=== PATIENT | male | born 1990 | race Caucasian/White ===

== ENCOUNTER 2021-01-20 11:41 | Emergency (ER) | payer SELFPAY ==
[2021-01-20] MEDS ORDERED: Ondansetron 4 MG/2 ML SDV IVPUSH ONE (12:23)
[2021-01-20] MEDS ORDERED: Sodium Chloride 0.9% 10 ML Syringe FLUSH PRN (12:23)
[2021-01-20] MEDS ORDERED: LORazepam 2 MG/ML SDV IVPUSH ONE (12:23)
[2021-01-20] MEDS ORDERED: Sodium Chloride 0.9% 1,000 ML IV ONE (12:25)
--- NOTE | 2021-01-20 12:35 | EDM.PDOC ---
ED HPI GENERAL MEDICAL PROBLEM - General Chief Complaint: General Stated Complaint: NOT EATING OR SLEEPING Time Seen by Provider: 01/20/21 12:03 Source of Information: Reports: Patient History Limitations: Reports: No Limitations - History of Present Illness INITIAL COMMENTS - FREE TEXT/NARRATIVE: 30-year-old male presents the emergency department with complaints of anxiety,, nausea, sweating, and inability to eat or sleep. Patient states that he stopped using heroin cold turkey approximately 30 days ago. States he has been using it for approximately the past 20 years. He has been clean at times for up to 6 months however he states he always rebounds and goes back to using it. States he has also been using fentanyl for about a year. States he is also drinking a few sips of alcohol throughout the day daily since he has stopped using heroin. He also does smoke about a pack of cigarettes daily. - Related Data Allergies Allergy/AdvReac Type Severity Reaction Status Date / Time No Known Allergies Allergy Verified 01/20/21 12:04 Home Meds: Home Meds Escitalopram Oxalate [Lexapro] 10 mg PO DAILY #30 tablet 01/20/21 [Rx] Ondansetron [Zofran ODT] 4 mg PO Q6H PRN #12 tab.dis 01/20/21 [Rx] Past Medical History Psychiatric History: Reports: Addiction, Anxiety Other Psychiatric History: Quit IV Heroin in November 2020, after using for 20 yrs - Past Surgical History Musculoskeletal Surgical History: Reports: Other (See Below) Other Musculoskeletal Surgeries/Procedures:: Right hand surgery after an injury that caused a fracture Social & Family History - Tobacco Use Tobacco Use Status *Q: Current Every Day Tobacco User Years of Tobacco use: 24 Packs/Tins Daily: 0.5 - Caffeine Use Caffeine Use: Reports: None - Alcohol Use Days Per Week of Alcohol Use: 7 Number of Drinks Per Day: 2 Total Drinks Per Week: 14 - Recreational Drug Use Recreational Drug Use: Yes Drug Use in Last 12 Months: Yes Recreational Drug Type: Reports: Heroin Recreational Drug Last Use: 30 days ago ED ROS GENERAL - Review of Systems Review Of Systems: Comprehensive ROS is negative, except as noted in HPI. ED EXAM, GENERAL - Physical Exam Exam: See Below Exam Limited By: No Limitations General Appearance: Alert, WD/WN, Anxious Ears: Normal External Exam, Hearing Grossly Normal Nose: Normal Inspection Throat/Mouth: Normal Inspection, Normal Lips, Normal Voice, No Airway Compromise Head: Atraumatic Neck: Normal Inspection, Supple Respiratory/Chest: No Respiratory Distress, Lungs Clear, Normal Breath Sounds, No Accessory Muscle Use, Chest Non-Tender Cardiovascular: Normal Peripheral Pulses, Regular Rate, Rhythm, No Edema, No Murmur Peripheral Pulses: 2+: Radial (L), Radial (R) GI/Abdominal: Normal Bowel Sounds, Soft, Non-Tender, No Distention (Male) Exam: Deferred Rectal (Males) Exam: Deferred Back Exam: Normal Inspection Extremities: Normal Inspection Neurological: Alert, Oriented, Normal Cognition Psychiatric: Anxious Skin Exam: Warm, Dry, Intact, Normal Color, No Rash Lymphatic: No Adenopathy #1 Interpretation EKG Date: 01/20/21 Time: 12:44 Rhythm: NSR Rate (Beats/Min): 80 [place]: Normal P-Wave: Present QRS: Normal ST-T: Normal QT: Normal Comparison: NA - No Prior EKG EKG Interpretation Comments: Per Dr. Shaikh interpretation: Sinus rhythm at 80 bpm; borderline low voltage, extremity leads Course - Vital Signs Text/Narrative:: As stated above, patient presents with symptoms of detoxing from heroin. Physical exam is essentially unremarkable. Will obtain lab studies to include a CBC, CMP, magnesium, salicylate, acetaminophen, TSH, urine drug screen and an alcohol level. Also obtain a baseline EKG. Patient will be given a liter of n ormal saline as he states he has been unable to keep food or fluids down as well as Zofran and Ativan. Last Recorded V/S: Last Vital Signs Temp 98.7 F 01/20/21 11:59 Pulse 103 H 01/20/21 11:59 Resp 24 H 01/20/21 11:59 BP 136/96 H 01/20/21 11:59 Pulse Ox - Orders/Labs/Meds Orders: Active Orders 24 hr Category Date Time Status Sodium Chloride 0.9% [Saline Flush] Med 01/20/21 12:23 Active 10 ml FLUSH ASDIRECTED PRN Saline Lock Insert [OM.PC] Stat Oth 01/20/21 12:23 Ordered Medication Orders Sodium Chloride (Sodium Chloride 0.9% 10 Ml Syringe) 10 ml FLUSH ASDIRECTED PRN PRN Reason: Keep Vein Open Last Admin: 01/20/21 13:50 Dose: 10 ml Documented by: KALEY Labs: Laboratory Tests 01/20/21 01/20/21 01/20/21 Range/Units 12:38 12:38 12:38 WBC 8.22 (4.23-9.07) K/mm3 RBC 5.31 (4.63-6.08) M/mm3 Hgb 15.5 (13.7-17.5) gm/dl Hct 44.3 (40.1-51.0) % MCV 83.4 (79.0-92.2) fl MCH 29.2 (25.7-32.2) pg MCHC 35.0 (32.2-35.5) g/dl RDW Std Deviation 41.1 (35.1-43.9) fL Plt Count 458 H (163-337) K/mm3 MPV 8.8 L (9.4-12.3) fl Neut % (Auto) 55.5 (34.0-67.9) % Lymph % (Auto) 30.9 (21.8-53.1) % [place] % (Auto) 12.5 H (5.3-12.2) % Eos % (Auto) 0.6 L (0.8-7.0) Baso % (Auto) 0.4 (0.1-1.2) % Neut # (Auto) 4.56 (1.78-5.38) K/mm3 Lymph # (Auto) 2.54 (1.32-3.57) K/mm3 [place] # (Auto) 1.03 H (0.30-0.82) K/mm3 Eos # (Auto) 0.05 (0.04-0.54) K/mm3 Baso # (Auto) 0.03 (0.01-0.08) K/mm3 Sodium 137 (136-145) mEq/L Potassium 2.5 L (3.5-5.1) mEq/L Chloride 97 L (98-107) mEq/L Carbon Dioxide 31 (21-32) mEq/L Anion Gap 11.5 (5-15) BUN 15 (7-18) mg/dL Creatinine 1.4 H (0.7-1.3) mg/dL Est Cr Clr Drug Dosing 70.82 mL/min Estimated GFR (MDRD) 59 (>60) mL/min BUN/Creatinine Ratio 10.7 L (14-18) Glucose 108 H (70-99) mg/dL Calcium 9.8 (8.5-10.1) mg/dL Magnesium 2.4 (1.8-2.4) mg/dL Total Bilirubin 0.8 (0.2-1.0) mg/dL AST 9 L (15-37) U/L ALT 20 (16-63) U/L Alkaline Phosphatase 49 (46-116) U/L Total Protein 7.5 (6.4-8.2) g/dl Albumin 4.3 (3.4-5.0) g/dl Globulin 3.2 gm/dL Albumin/Globulin Ratio 1.3 (1-2) TSH 3rd Generation 0.483 (0.358-3.74) uIU/mL Salicylates (2.8-20) mg/dL Urine Opiates Screen (OLJJRF=486) Ur Buprenorphine Scrn (CUTOFF=10) Ur Oxycodone Screen (YYX9NS=186) Urine Methadone Screen (MUS5GK=818) Ur Propoxyphene Screen (FVXBGK=812) Acetaminophen 0 L (10-30) ug/mL Ur Barbiturates Screen (YDLTLQ=016) Ur Tricyclics Screen (OFZTYT=083) Ur Phencyclidine Scrn (CUTOFF=25) Ur Amphetamine Screen (FDXZOA=932) U Methamphetamines Scrn (JIMEIF=141) U Benzodiazepines Scrn (EYMHIQ=093) U Cocaine Metab Screen (UXGDGU=955) U Marijuana (THC) Screen (CUTOFF=50) Ethyl Alcohol 0.00 (0.00) gm% 01/20/21 01/20/21 Range/Units 12:38 16:46 WBC (4.23-9.07) K/mm3 RBC (4.63-6.08) M/mm3 Hgb (13.7-17.5) gm/dl Hct (40.1-51.0) % MCV (79.0-92.2) fl MCH (25.7-32.2) pg MCHC (32.2-35.5) g/dl RDW Std Deviation (35.1-43.9) fL Plt Count (163-337) K/mm3 MPV (9.4-12.3) fl Neut % (Auto) (34.0-67.9) % Lymph % (Auto) (21.8-53.1) % [place] % (Auto) (5.3-12.2) % Eos % (Auto) (0.8-7.0) Baso % (Auto) (0.1-1.2) % Neut # (Auto) (1.78-5.38) K/mm3 Lymph # (Auto) (1.32-3.57) K/mm3 [place] # (Auto) (0.30-0.82) K/mm3 Eos # (Auto) (0.04-0.54) K/mm3 Baso # (Auto) (0.01-0.08) K/mm3 Sodium (136-145) mEq/L Potassium (3.5-5.1) mEq/L Chloride (98-107) mEq/L Carbon Dioxide (21-32) mEq/L Anion Gap (5-15) BUN (7-18) mg/dL Creatinine (0.7-1.3) mg/dL Est Cr Clr Drug Dosing mL/min Estimated GFR (MDRD) (>60) mL/min BUN/Creatinine Ratio (14-18) Glucose (70-99) mg/dL Calcium (8.5-10.1) mg/dL Magnesium (1.8-2.4) mg/dL Total Bilirubin (0.2-1.0) mg/dL AST (15-37) U/L ALT (16-63) U/L Alkaline Phosphatase (46-116) U/L Total Protein (6.4-8.2) g/dl Albumin (3.4-5.0) g/dl Globulin gm/dL Albumin/Globulin Ratio (1-2) TSH 3rd Generation (0.358-3.74) uIU/mL Salicylates 0.2 L (2.8-20) mg/dL Urine Opiates Screen Negative (JZDBDQ=645) Ur Buprenorphine Scrn Negative (CUTOFF=10) Ur Oxycodone Screen Negative (RJC5XM=020) Urine Methadone Screen Negative (YFR4WX=923) Ur Propoxyphene Screen Negative (NFKXAA=045) Acetaminophen (10-30) ug/mL Ur Barbiturates Screen Negative (QEZIOO=114) Ur Tricyclics Screen Negative (OOOLJD=890) Ur Phencyclidine Scrn Negative (CUTOFF=25) Ur Amphetamine Screen Presumptive positive H (SSWZSG=402) U Methamphetamines Scrn Presumptive positive H (DOXNXM=654) U Benzodiazepines Scrn Presumptive positive H (UBNYLS=896) U Cocaine Metab Screen Negative (CDLDWY=789) U Marijuana (THC) Screen Negative (CUTOFF=50) Ethyl Alcohol (0.00) gm% Meds: Medications Generic Name Dose Route Start Last Admin Trade Name Freq PRN Reason Stop Dose Admin Sodium Chloride 10 ml 01/20/21 12:23 01/20/21 13:50 Sodium Chloride 0.9% 10 Ml Syringe FLUSH 10 ml ASDIRECTED PRN Administration Keep Vein Open Discontinued Medications Generic Name Dose Route Start Last Admin Trade Name Freq PRN Reason Stop Dose Admin Sodium Chloride 1,000 mls @ 999 mls/hr 01/20/21 12:25 01/20/21 12:46 Normal Saline IV 01/20/21 13:25 999 mls/hr ONETIME ONE Administration Potassium Chloride 10 meq/ 100 mls @ 100 mls/hr 01/20/21 13:30 01/20/21 16:51 Premix IV 01/20/21 17:29 100 mls/hr Q1H JUAN Administration Lorazepam 1 mg 01/20/21 12:23 01/20/21 12:48 Lorazepam 2 Mg/Ml Sdv IVPUSH 01/20/21 12:24 1 mg ONETIME ONE Administration Ondansetron HCl 4 mg 01/20/21 12:23 01/20/21 12:47 Ondansetron 4 Mg/2 Ml Sdv IVPUSH 01/20/21 12:24 4 mg ONETIME ONE Administration Potassium Chloride 40 meq 01/20/21 13:25 01/20/21 13:50 Potassium Chloride 20 Meq Tab.Er PO 01/20/21 13:26 40 meq ONETIME ONE Administration - Re-Assessments/Exams Free Text/Narrative Re-Assessment/Exam: 01/20/21 1325 Hematology is essentially unremarkable Chemistry reveals a sodium of 137, potassium 2.5, chloride 97, carbon dioxide 31, anion gap 11.5, BUN 15, creatinine 1.4, glucose 108, magnesium 2.4, AST 9, ALT 20, alk phos 49, TSH 0.483 Salicylate level 0.2, acetaminophen 0, ethyl alcohol 0.00 Patient will receive potassium chloride 10 mEq every 1 hour x 4 doses as well as potassium chloride 40 mEq p.o. x1 dose. 11/27/21 16:48 Patient states he would potentially be receptive to going to the [facility] for treatment. [facility] will be called to come and visit with him. 01/20/21 18:03 Urine drug screen is presumptive positive for amphetamines, methamphetamines and benzodiazepines. 01/20/21 18:49 [facility] staff here to visit the patient. Potassium infusion is complete. Patient will be discharged home. Requesting a sleeping pill however I told him that he should try melatonin as an alternative. He states he does have a prescription for hydroxyzine at home so he will try that. We will also send prescription to [facility] in [place] for Zofran ODT as well as Lexapro 10 mg daily. Departure - Departure Time of Disposition: 18:50 Disposition: Home, Self-Care 01 Condition: Good Clinical Impression: Hypokalemia, Heroin use Nausea & vomiting Qualifiers: Vomiting type: unspecified Vomiting Intractability: intractable Qualified Code(s): R11.2 - Nausea with vomiting, unspecified - Discharge Information Prescriptions: Escitalopram Oxalate [Lexapro] 10 mg PO DAILY #30 tablet Ondansetron [Zofran ODT] 4 mg PO Q6H PRN #12 tab.dis PRN Reason: Nausea/Vomiting Referrals: PCP,None [Primary Care Provider] - Forms: ED Department Discharge Additional Instructions: You were seen in the emergency department today and evaluated. Lab studies were completed and you were found to be quite low on potassium. Subsequently received IV fluids and potassium supplementation via IV and oral. Recommend you follow-up with [facility] first thing Friday to establish care. I have sent a prescription to [facility] in [place] for a nausea medication called Zofran ODT. You may take [address] it under your tongue and allow to dissolve. Wait approximately 30 minutes prior to eating or drinking. May take 1 tab every 6 hours as needed for nausea and vomiting. I have also sent a prescription for an antidepression/anxiety medication called Lexapro to the pharmacy. You will need to take 1 tab daily. Allow approximately 2 weeks for the medication to start to take effect. Initial side effects of this medication are headache and nausea however these resolve after about 1 week time. Recommend that you establish care either with [facility] or with your primary care provider to prescribe further doses of your Lexapro. Sepsis Event Note (ED) - Evaluation Sepsis Screening Result: No Definite Risk - Focused Exam Vital Signs: Vital Signs Temp Pulse Resp BP 01/20/21 11:59 98.7 F 103 H 24 H 136/96 H - My Orders Last 24 Hours: My Active Orders 01/20/21 12:23 Sodium Chloride 0.9% [Saline Flush] 10 ml FLUSH ASDIRECTED PRN Saline Lock Insert [OM.PC] Stat - Assessment/Plan Last 24 Hours: My Active Orders 01/20/21 12:23 Sodium Chloride 0.9% [Saline Flush] 10 ml FLUSH ASDIRECTED PRN Saline Lock Insert [OM.PC] Stat
[2021-01-20] MEDS ORDERED: Potassium Chloride 20 MEQ Tab.ER PO ONE (13:25)
[2021-01-20] MEDS: Potassium Chloride 10 MEQ in Premix Bag 1 BAG IV SCH ×4 (13:50→16:51)
== END 2021-01-20 19:02 | disposition home or self-care (01) ==
LOC: JD.ED 11:41
DX: R11.2 Nausea with vomiting, unspecified (principal); F11.90 Opioid use, unspecified, uncomplicated; E87.6 Hypokalemia; Z72.0 Tobacco use
CPT/HCPCS: 36415; 80053; 80143; 80179; 80306; 80307; 83735; 84443; 85025; 93005; 96365; 96366; 96375; 99284-25; A9270-GY; J2060; J2405; J3480; J7030

== ENCOUNTER 2021-01-22 20:49 | Emergency (ER) | payer SELFPAY ==
[2021-01-22] MEDS ORDERED: Metoclopramide 10 MG/2 ML SDV IVPUSH ONE (22:02)
[2021-01-22] MEDS ORDERED: Sodium Chloride 0.9% 10 ML Syringe FLUSH PRN (22:02)
[2021-01-22] MEDS ORDERED: Ketorolac 30 MG/ML SDV IVPUSH ONE (22:02)
[2021-01-22] MEDS ORDERED: Sodium Chloride 0.9% 1,000 ML IV ONE (22:14)
--- NOTE | 2021-01-22 22:19 | EDM.PDOC ---
ED HPI GENERAL MEDICAL PROBLEM - General Chief Complaint: General Stated Complaint: NOT FEELING WELL Time Seen by Provider: 01/22/21 22:01 Source of Information: Reports: Patient, Old Records (visit from a few days ago), RN Notes Reviewed History Limitations: Reports: No Limitations - History of Present Illness INITIAL COMMENTS - FREE TEXT/NARRATIVE: Patient is a 30-year-old male who presents to the ER for ongoing nausea/vomiting. He had a ER visit in this ER a few days ago, was given some IV potassium fluids, and sent home with some Zofran and Lexapro and states that he did feel better for a few days. He did follow-up with [facility] and notes he does have continuing follow-up with Dr. Cevallos for ongoing psychiatric management. Patient has a history of heroin use, methamphetamine use, and alcohol use. States that he cut heroin out of his life cold turkey about 30 days ago. States he has been using some alcohol during this time to help "numb the symptoms". Both he and his significant other in the room states that he is not been able to keep anything down for food or fluids today at all. She did try to give him some Zofran earlier today and this didn't seem to help at all. No fevers but he does feel chilled, he is having nausea and vomiting, no diarrhea no cough or shortness of breath. Generalized Pain Score (Numeric/FACES): 4 - Related Data Allergies Allergy/AdvReac Type Severity Reaction Status Date / Time amoxicillin Allergy Rash Verified 01/22/21 21:25 Home Meds: Home Meds Escitalopram Oxalate [Lexapro] 10 mg PO DAILY #30 tablet 01/20/21 [Rx] Ondansetron [Zofran ODT] 4 mg PO Q6H PRN #12 tab.dis 01/20/21 [Rx] Metoclopramide HCl [Reglan] 10 mg PO QID PRN #20 tablet 01/22/21 [Rx] Past Medical History Psychiatric History: Reports: Addiction, Anxiety Other Psychiatric History: Quit IV Heroin in November 2020, after using for 20 yrs - Past Surgical History Musculoskeletal Surgical History: Reports: Other (See Below) Other Musculoskeletal Surgeries/Procedures:: Right hand surgery after an injury that caused a fracture Social & Family History - Caffeine Use Caffeine Use: Reports: None - Recreational Drug Use Recreational Drug Use: Yes Drug Use in Last 12 Months: Yes Recreational Drug Type: Reports: Heroin (IV, quit in november 2020, has 20 year use history), Methamphetamine ED ROS GENERAL - Review of Systems Review Of Systems: Comprehensive ROS is negative, except as noted in HPI. ED EXAM, GENERAL - Physical Exam Exam: See Below Exam Limited By: No Limitations General Appearance: Alert, WD/WN, No Apparent Distress Throat/Mouth: Normal Inspection, Normal Lips, Normal Teeth, Normal Gums, Normal Oropharynx, Normal Voice, No Airway Compromise Respiratory/Chest: No Respiratory Distress, Lungs Clear, Normal Breath Sounds, No Accessory Muscle Use, Chest Non-Tender Cardiovascular: Normal Peripheral Pulses, Regular Rate, Rhythm, No Edema Peripheral Pulses: 2+: Radial (L), Radial (R) GI/Abdominal: Normal Bowel Sounds, Soft, Non-Tender, No Distention, No Mass Extremities: Normal Inspection, Normal Capillary Refill Neurological: Alert, Oriented, Normal Cognition, No Motor/Sensory Deficits Psychiatric: Normal Affect, Normal Mood Skin Exam: Warm, Dry, Intact, Normal Color, No Rash Course - Vital Signs Last Recorded V/S: Last Vital Signs Temp 97.4 F 01/22/21 21:19 Pulse 100 01/22/21 21:19 Resp 18 01/22/21 21:19 BP 128/103 H 01/22/21 21:19 Pulse Ox 100 01/22/21 21:19 - Orders/Labs/Meds Orders: Active Orders 24 hr Category Date Time Status Peripheral IV Care [RC] . DIRECTED Care 01/22/21 22:02 Active Sodium Chloride 0.9% [Saline Flush] Med 01/22/21 22:02 Active 10 ml FLUSH ASDIRECTED PRN Peripheral IV Insertion Adult [OM.PC] Routine Oth 01/22/21 22:02 Ordered Medication Orders Sodium Chloride (Sodium Chloride 0.9% 10 Ml Syringe) 10 ml FLUSH ASDIRECTED PRN PRN Reason: Keep Vein Open Last Admin: 01/22/21 22:20 Dose: 10 ml Documented by: KENDRA Labs: Laboratory Tests 01/22/21 01/22/21 Range/Units 22:10 22:10 WBC 17.54 H (4.23-9.07) K/mm3 RBC 5.43 (4.63-6.08) M/mm3 Hgb 16.2 (13.7-17.5) gm/dl Hct 46.0 (40.1-51.0) % MCV 84.7 (79.0-92.2) fl MCH 29.8 (25.7-32.2) pg MCHC 35.2 (32.2-35.5) g/dl RDW Std Deviation 42.3 (35.1-43.9) fL Plt Count 433 H (163-337) K/mm3 MPV 8.5 L (9.4-12.3) fl Neut % (Auto) 74.4 H (34.0-67.9) % Lymph % (Auto) 17.4 L (21.8-53.1) % [place] % (Auto) 7.2 (5.3-12.2) % Eos % (Auto) 0.6 L (0.8-7.0) Baso % (Auto) 0.2 (0.1-1.2) % Neut # (Auto) 13.05 H (1.78-5.38) K/mm3 Lymph # (Auto) 3.05 (1.32-3.57) K/mm3 [place] # (Auto) 1.26 H (0.30-0.82) K/mm3 Eos # (Auto) 0.11 (0.04-0.54) K/mm3 Baso # (Auto) 0.03 (0.01-0.08) K/mm3 Sodium 140 (136-145) mEq/L Potassium 3.7 (3.5-5.1) mEq/L Chloride 101 (98-107) mEq/L Carbon Dioxide 29 (21-32) mEq/L Anion Gap 13.7 (5-15) BUN 15 (7-18) mg/dL Creatinine 1.4 H (0.7-1.3) mg/dL Est Cr Clr Drug Dosing TNP Estimated GFR (MDRD) 59 (>60) mL/min BUN/Creatinine Ratio 10.7 L (14-18) Glucose 102 H (70-99) mg/dL Calcium 9.9 (8.5-10.1) mg/dL Magnesium 3.1 H (1.8-2.4) mg/dL Total Bilirubin 0.3 (0.2-1.0) mg/dL AST 15 (15-37) U/L ALT 20 (16-63) U/L Alkaline Phosphatase 48 (46-116) U/L Total Protein 7.5 (6.4-8.2) g/dl Albumin 4.3 (3.4-5.0) g/dl Globulin 3.2 gm/dL Albumin/Globulin Ratio 1.3 (1-2) Meds: Medications Generic Name Dose Route Start Last Admin Trade Name Dash PRN Reason Stop Dose Admin Sodium Chloride 10 ml 01/22/21 22:02 01/22/21 22:20 Sodium Chloride 0.9% 10 Ml Syringe FLUSH 10 ml ASDIRECTED PRN Administration Keep Vein Open Discontinued Medications Generic Name Dose Route Start Last Admin Trade Name Dash PRN Reason Stop Dose Admin Sodium Chloride 1,000 mls @ 999 mls/hr 01/22/21 22:14 01/22/21 22:17 Normal Saline IV 01/22/21 23:14 999 mls/hr ONETIME ONE Administration Ketorolac Tromethamine 30 mg 01/22/21 22:02 01/22/21 22:18 Ketorolac 30 Mg/Ml Sdv IVPUSH 01/22/21 22:03 30 mg ONETIME ONE Administration Metoclopramide HCl 10 mg 01/22/21 22:02 01/22/21 22:17 Metoclopramide 10 Mg/2 Ml Sdv IVPUSH 01/22/21 22:03 10 mg ONETIME ONE Administration - Re-Assessments/Exams Free Text/Narrative Re-Assessment/Exam: 01/22/21 22:18 Patient presents to the ER for his ongoing nausea/vomiting. We'll go ahead and get IV established, give him some fluids, some Toradol and Reglan for ongoing management we'll check some labs as well. 01/22/21 22:58 Patient is resting at this time, states that he is feeling better. After he finishes up his fluids, we will get him going home with general recommendations. I will give him a prescription for Reglan for ongoing management as this seemed to help his nausea quite a bit today. Patient's white count was mildly elevated, is likely due to acute stress/nausea and vomiting. All other labs are unremarkable, potassium is within normal limits, magnesium was slightly high at 3.1 but he has no symptoms of hypomagnesemia. Calcium is also within normal limits. Departure - Departure Time of Disposition: 22:59 Disposition: Home, Self-Care 01 Condition: Good Clinical Impression: Nausea and vomiting Qualifiers: Vomiting type: unspecified Vomiting Intractability: non-intractable Qualified Code(s): R11.2 - Nausea with vomiting, unspecified - Discharge Information *PRESCRIPTION DRUG MONITORING PROGRAM REVIEWED*: No *COPY OF PRESCRIPTION DRUG MONITORING REPORT IN PATIENT DUGLAS: No Prescriptions: Metoclopramide HCl [Reglan] 10 mg PO QID PRN #20 tablet PRN Reason: Nausea Instructions: Nausea and Vomiting, Adult, [id number] Referrals: PCP,None [Primary Care Provider] - Forms: ED Department Discharge Additional Instructions: You have been evaluated in the ED for nausea/vomiting. Laboratory evaluation demonstrated no acute abnormalities in your potassium levels at today's visit. White count was a little bit elevated, but this sometimes can be elevated when we are having nausea/vomiting as it is an acute stress phase reactant. You have received IV fluid and nausea medications in the ED to help with the dehydration from the vomiting. Over the next 24-48 hours please try to limit diet to clear liquids and advance as tolerated to a bland diet to alleviate symptoms of nausea/vomiting. Please use the Reglan 4 times a day as needed for ongoing nausea. This medication was electronically sent to the [place] pharmacy located in the [employer] [facility]. Sometimes this can interact with your medication Lexapro, if you should notice any involuntary muscle movements, facial tics or otherwise, please do not use the Reglan anymore. Please follow-up with [facility] human services as previously set up for ongoing management of your psychiatric/addiction needs. Please return to the ED if your symptoms should change or worsen. Sepsis Event Note (ED) - Evaluation Sepsis Screening Result: No Definite Risk - Focused Exam Vital Signs: Vital Signs Temp Pulse Resp BP Pulse Ox 01/22/21 21:19 97.4 F 100 18 128/103 H 100 - My Orders Last 24 Hours: My Active Orders 01/22/21 22:02 Peripheral IV Care [RC] . DIRECTED Sodium Chloride 0.9% [Saline Flush] 10 ml FLUSH ASDIRECTED PRN Peripheral IV Insertion Adult [OM.PC] Routine - Assessment/Plan Last 24 Hours: My Active Orders 01/22/21 22:02 Peripheral IV Care [RC] . DIRECTED Sodium Chloride 0.9% [Saline Flush] 10 ml FLUSH ASDIRECTED PRN Peripheral IV Insertion Adult [OM.PC] Routine
== END 2021-01-22 23:23 | disposition home or self-care (01) ==
LOC: JD.ED 20:49
DX: R11.2 Nausea with vomiting, unspecified (principal); Z88.0 Allergy status to penicillin
CPT/HCPCS: 36415; 80053; 83735; 85025; 96374; 96375; 99284; J1885; J2765; J7030

== ENCOUNTER 2022-05-12 14:51 | Emergency (ER) | payer SELFPAY ==
[2022-05-12] MEDS ORDERED: Sodium Chloride 0.9% 1,000 ML IV STA (15:21)
[2022-05-12] MEDS ORDERED: Sodium Chloride 0.9% 10 ML Syringe FLUSH PRN (15:21)
[2022-05-12] MEDS ORDERED: Ondansetron 4 MG/2 ML SDV IVPUSH ONE (15:21)
[2022-05-12] MEDS ORDERED: cloNIDine 0.1 MG Tab PO ONE (15:23)
[2022-05-12] MEDS ORDERED: Metoclopramide 10 MG/2 ML SDV IVPUSH ONE (16:52)
[2022-05-12] MEDS ORDERED: HYDROmorphone 1 MG/ML Syringe IVPUSH ONE (16:52)
[2022-05-12] MEDS ORDERED: Lactated Ringers 1,000 ML IV ONE (17:35)
[2022-05-12] MEDS ORDERED: HYDROmorphone 0.5 MG/0.5 ML Syringe IVPUSH ONE (18:19)
== END 2022-05-12 18:43 | disposition home or self-care (01) ==
LOC: JD.ED 14:51
DX: F11.23 Opioid dependence with withdrawal (principal); Z72.0 Tobacco use; Z88.0 Allergy status to penicillin
CPT/HCPCS: 36415; 80053; 80143; 80179; 80307; 83735; 85025; 96361; 96374; 96375; 99284; J1170; J2405; J2765; J3490; J7030; 99283

== ENCOUNTER 2023-10-06 20:22 | Inpatient (IN) | payer MEDICAID ==
[2023-10-06 21:10] LABS: BASOPHILS PERCENT AUTO 0.1 % (0.0-1.0); EOSINOPHILS PERCENT AUTO 0.2 % (0.0-6.0); HEMATOCRIT 46.8 % (42.0-52.0); HEMOGLOBIN 16.7 gm/dl (14.0-18.0); IMMATURE GRAN ABSOLUTE AUTO 0.03 K/mm3 (0.00-0.05); IMMATURE GRAN PERCENT AUTO 0.3 % (0.0-0.4); LYMPHOCYTES ABSOLUTE AUTO 1.4 K/mm3 (1.0-4.8); MEAN CORPUSCULAR HEMOGLOBIN 29.1 pg (28.0-32.0); MEAN CORPUSCULAR HGB CONC 35.7 g/dl (32.0-36.0); MEAN CORPUSCULAR VOLUME 81.7 fl (83.0-99.0); MEAN PLATELET VOLUME 8.8 fl (9.4-12.4); MONOCYTES ABSOLUTE AUTO 0.4 K/mm3 (0.0-0.8); MONOCYTES PERCENT AUTO 3.9 % (0.0-8.0); NEUTROPHILS ABSOLUTE AUTO 9.4 K/mm3 (1.8-7.7); NEUTROPHILS PERCENT AUTO 83.5 % (41.0-71.0); PLATELET COUNT,PLT 434 K/mm3 (150-400); RED BLOOD CELL COUNT 5.73 M/mm3 (4.52-5.90); WHITE BLOOD CELL COUNT,WBC 11.26 K/mm3 (3.9-11.3)
[2023-10-06] MEDS: Sodium Chloride 0.9% 10 ML Syringe FLUSH PRN (21:21)
[2023-10-06] MEDS: Sodium Chloride 0.9% 1,000 ML IV ONE (21:21)
[2023-10-06 21:38] LABS: BILIRUBIN,URINE 2+ (Negative); COLOR,URINE YELLOW (Yellow); GLUCOSE,URINE NEGATIVE (Negative); KETONES,URINE 4+ (Negative); LEUKOCYTE ESTERASE,URINE TRACE (Negative); NITRITE,URINE NEGATIVE (Negative); OCCULT BLOOD,URINE 3+ (Negative); PROTEIN,URINE 2+ (Negative); UROBILINOGEN,URINE 0.2 (0.2-1.0)
[2023-10-06 21:40] LABS: BARBITURATE SCREEN,URINE NEGATIVE (CUTOFF=200); BENZODIAZEPINES SCREEN,URINE PRESUMPTIVE POSITIVE (CUTOFF=150); BUPRENORPHINE SCREEN,URINE NEGATIVE (CUTOFF=10); METHADONE SCREEN, URINE NEGATIVE (CUT0FF=200); METHAMPHETAMINES SCREEN, URINE PRESUMPTIVE POSITIVE (CUTOFF=500); OXYCODONE SCREEN,URINE NEGATIVE (CUT0FF=100); THC SCREEN,URINE 20 NG/ML PRESUMPTIVE POSITIVE (CUTOFF=50)
[2023-10-06 21:41] LABS: AMPHETAMINES SCREEN, URINE PRESUMPTIVE POSITIVE (CUTOFF=500)
[2023-10-06 21:41] LABS: A/G RATIO 1.3 (1-2); ALANINE AMINOTRANSFERASE,ALT 27 U/L (16-63); ALBUMIN 4.6 g/dl (3.4-5.0); ALKALINE PHOSPHATASE 60 U/L (46-116); ANION GAP 19.4 (5-15); ASPARTATE AMNIOTRANSFERASE,AST 17 U/L (15-37); BILIRUBIN TOTAL 0.9 mg/dL (0.2-1.0); BLOOD UREA NITROGEN,BUN 16 mg/dL (7-18); BUN/CREATININE RATIO 11.4 (14-18); CARBON DIOXIDE,CO2 23 mEq/L (21-32); CHLORIDE,CL 102 mEq/L (98-107); CREATINE KINASE,CK 252 U/L (39-308); CREATININE 1.4 mg/dL (0.7-1.3); EST CRCL DRUG DOSING (CG) 68.85 mL/min; ESTIMATED GFR 67 mL/min (>60); GLUCOSE RANDOM 117 mg/dL (70-99); LIPASE 35 U/L (16-77); MAGNESIUM 1.6 mg/dL (1.8-2.4); POTASSIUM,K 3.4 mEq/L (3.5-5.1); PROTEIN TOTAL,TP 8.2 g/dl (6.4-8.2); SODIUM,NA 141 mEq/L (136-145)
[2023-10-06 21:49] LABS: TROPONIN I HIGH SENSITIVITY < 4 pg/mL (<=76)
[2023-10-06 21:50] LABS: APPEARANCE,URINE SLT CLOUDY (Clear)
[2023-10-06 21:51] LABS: BACTERIA,URINE FEW /hpf (FEW); MUCUS,URINE MANY /hpf (FEW); RBC,URINE 50-75 /hpf (0-5); SQUAMOUS EPITHELIAL CELLS,UR 0-5 /hpf (0-5)
[2023-10-06 22:04] LABS: CORONAVIRUS COVID-19 NAA NEGATIVE (NEGATIVE); INFLUENZA A NAA NEGATIVE (NEGATIVE); RESPIRATORY SYNCYTIAL VIR NAA NEGATIVE (NEGATIVE)
[2023-10-06] MEDS ORDERED: Magnesium Sulfate (4.06 MEQ/ML) 5 GM/10 ML SDV IV ONE (22:37)
[2023-10-06] MEDS: Sodium Chloride 0.9% 1,000 ML IV SCH (23:18)
[2023-10-06] MEDS: Potassium Chloride 10 MEQ in Premix Bag 1 BAG IV ONE ×2 (23:18)
[2023-10-07] MEDS ORDERED: LORazepam 2 MG/ML SDV IVPUSH PRN (00:07)
[2023-10-07] MEDS: Magnesium Sulfate/Water 50 ML IV SCH (00:13)
[2023-10-07] MEDS: Magnesium Sulfate/Water 100 ML IV ONE (00:22)
[2023-10-07 04:59] LABS: BASOPHILS PERCENT AUTO 0.2 % (0.0-1.0); HEMATOCRIT 44.9 % (42.0-52.0); HEMOGLOBIN 15.7 gm/dl (14.0-18.0); IMMATURE GRAN ABSOLUTE AUTO 0.07 K/mm3 (0.00-0.05); IMMATURE GRAN PERCENT AUTO 0.5 % (0.0-0.4); LYMPHOCYTES ABSOLUTE AUTO 2.4 K/mm3 (1.0-4.8); MEAN CORPUSCULAR HEMOGLOBIN 28.8 pg (28.0-32.0); MEAN CORPUSCULAR VOLUME 82.4 fl (83.0-99.0); MEAN PLATELET VOLUME 8.9 fl (9.4-12.4); MONOCYTES ABSOLUTE AUTO 1.5 K/mm3 (0.0-0.8); NEUTROPHILS ABSOLUTE AUTO 11.1 K/mm3 (1.8-7.7); NEUTROPHILS PERCENT AUTO 73.3 % (41.0-71.0); PLATELET COUNT,PLT 399 K/mm3 (150-400); RED BLOOD CELL COUNT 5.45 M/mm3 (4.52-5.90); WHITE BLOOD CELL COUNT,WBC 15.15 K/mm3 (3.9-11.3)
[2023-10-07 05:29] LABS: A/G RATIO 1.2 (1-2); ALBUMIN 3.9 g/dl (3.4-5.0); ANION GAP 15.8 (5-15); BILIRUBIN TOTAL 0.6 mg/dL (0.2-1.0); BUN/CREATININE RATIO 13.6 (14-18); CALCIUM 8.9 mg/dL (8.5-10.1); CREATININE 1.1 mg/dL (0.7-1.3); EST CRCL DRUG DOSING (CG) 87.63 mL/min; POTASSIUM,K 3.8 mEq/L (3.5-5.1); PROTEIN TOTAL,TP 7.3 g/dl (6.4-8.2); SLIDE REVIEW ABNORMAL SMEAR
[2023-10-07] MEDS ORDERED: Acetaminophen 325 MG Tab PO PRN (06:12)
[2023-10-07] MEDS: Potassium Chloride 10 MEQ in Premix Bag 1 BAG IV SCH (06:35)
[2023-10-07] MEDS: Enoxaparin 40 MG/0.4 ML Syringe SUBCUT SCH (07:59)
[2023-10-07] MEDS: Metoclopramide 10 MG/2 ML SDV IVPUSH PRN (13:18)
== END 2023-10-07 15:32 | disposition left against medical advice (07) | DRG 641 ==
LOC: JD.ED 20:22 → JD.MS 22:39 → JD.ICU 10-07 08:45 → JD.MS 10-07 08:46
PROVIDERS: ADMIT Internal Medicine; ATTEND Internal Medicine
DX: E83.42 Hypomagnesemia (principal); N17.9 Acute kidney failure, unspecified; F11.93 Opioid use, unspecified with withdrawal; F15.93 Other stimulant use, unspecified with withdrawal; F41.9 Anxiety disorder, unspecified; I45.81 Long QT syndrome; E87.6 Hypokalemia; R07.9 Chest pain, unspecified; F17.210 Nicotine dependence, cigarettes, uncomplicated; Z88.0 Allergy status to penicillin
CPT/HCPCS: 0241U; 36415; 71045; 71045-26; 80053; 80306; 80307; 81001; 82550; 83690; 83735; 84484; 85025; 87086; 93005; 94760; 96360; 99285-25; J1650; J2765; J3475; J3480; J3490; J7030

== ENCOUNTER 2023-10-07 16:33 | Emergency (ER) | payer MEDICAID ==
[2023-10-07 18:16] LABS: BASOPHILS PERCENT AUTO 0.2 % (0.0-1.0); EOSINOPHILS PERCENT AUTO 0.2 % (0.0-6.0); HEMATOCRIT 46.5 % (42.0-52.0); HEMOGLOBIN 16.1 gm/dl (14.0-18.0); IMMATURE GRAN ABSOLUTE AUTO 0.08 K/mm3 (0.00-0.05); IMMATURE GRAN PERCENT AUTO 0.5 % (0.0-0.4); LYMPHOCYTES ABSOLUTE AUTO 2.8 K/mm3 (1.0-4.8); LYMPHOCYTES PERCENT AUTO 16.2 % (24.0-44.0); MEAN CORPUSCULAR HGB CONC 34.6 g/dl (32.0-36.0); MEAN CORPUSCULAR VOLUME 83.6 fl (83.0-99.0); MEAN PLATELET VOLUME 8.5 fl (9.4-12.4); MONOCYTES ABSOLUTE AUTO 1.4 K/mm3 (0.0-0.8); MONOCYTES PERCENT AUTO 8.4 % (0.0-8.0); NEUTROPHILS ABSOLUTE AUTO 12.7 K/mm3 (1.8-7.7); NEUTROPHILS PERCENT AUTO 74.5 % (41.0-71.0); PLATELET COUNT,PLT 380 K/mm3 (150-400); RED BLOOD CELL COUNT 5.56 M/mm3 (4.52-5.90); WHITE BLOOD CELL COUNT,WBC 17.07 K/mm3 (3.9-11.3)
[2023-10-07 18:46] LABS: APPEARANCE,URINE CLEAR (Clear); BILIRUBIN,URINE NEGATIVE (Negative); COLOR,URINE YELLOW (Yellow); GLUCOSE,URINE NEGATIVE (Negative); KETONES,URINE 2+ (Negative); LEUKOCYTE ESTERASE,URINE NEGATIVE (Negative); NITRITE,URINE NEGATIVE (Negative); OCCULT BLOOD,URINE 2+ (Negative); PH,URINE 6.5 (5.0-8.0); PROTEIN,URINE NEGATIVE (Negative); UROBILINOGEN,URINE 0.2 (0.2-1.0)
[2023-10-07 18:49] LABS: A/G RATIO 1.1 (1-2); BILIRUBIN TOTAL 0.9 mg/dL (0.2-1.0); CREATININE 1.1 mg/dL (0.7-1.3); EST CRCL DRUG DOSING (CG) 87.63 mL/min; MAGNESIUM 2.5 mg/dL (1.8-2.4); PROTEIN TOTAL,TP 7.5 g/dl (6.4-8.2); TSH 0.343 uIU/mL (0.358-3.74)
[2023-10-07 18:55] LABS: BARBITURATE SCREEN,URINE NEGATIVE (CUTOFF=200); BENZODIAZEPINES SCREEN,URINE PRESUMPTIVE POSITIVE (CUTOFF=150); BUPRENORPHINE SCREEN,URINE NEGATIVE (CUTOFF=10); METHADONE SCREEN, URINE NEGATIVE (CUT0FF=200); METHAMPHETAMINES SCREEN, URINE PRESUMPTIVE POSITIVE (CUTOFF=500); OXYCODONE SCREEN,URINE NEGATIVE (CUT0FF=100); THC SCREEN,URINE 20 NG/ML NEGATIVE (CUTOFF=50)
[2023-10-07 18:58] LABS: AMPHETAMINES SCREEN, URINE PRESUMPTIVE POSITIVE (CUTOFF=500)
[2023-10-07 19:10] LABS: BACTERIA,URINE FEW /hpf (FEW); MUCUS,URINE MODERATE /hpf (FEW); RBC,URINE 30-40 /hpf (0-5); SQUAMOUS EPITHELIAL CELLS,UR 0-5 /hpf (0-5); WBC,URINE 0-5 /hpf (0-5)
[2023-10-08] MEDS ORDERED: LORazepam 1 MG Tab PO ONE (21:51)
== END 2023-10-07 22:05 | disposition left against medical advice (07) ==
LOC: JD.ED 16:33
DX: F11.10 Opioid abuse, uncomplicated (principal); F15.10 Other stimulant abuse, uncomplicated; F17.210 Nicotine dependence, cigarettes, uncomplicated; Z86.79 Personal history of other diseases of the circulatory system; Z88.0 Allergy status to penicillin; Z79.899 Other long term (current) drug therapy
CPT/HCPCS: 36415; 71045; 71045-26; 80053; 80143; 80179; 80306; 80307; 81001; 83735; 84443; 85025; 93005; 99284